=== PATIENT | male | born 1995 | race Caucasian/White ===

== ENCOUNTER 2021-03-24 15:38 | Outpatient (REF) | payer OTHER, SELFPAY ==
[2021-03-24 21:57] LABS: Influenza A PCR NEGATIVE (Negative); Influenza B PCR NEGATIVE (Negative); Resp Syncy Virus RNA Qual PCR NEGATIVE (Negative); SARS COV2 PCR INHOUSE POSITIVE (Negative)
== END 2021-03-24 15:39 | disposition home or self-care (01) ==
LOC: HO.LAB 15:38
PROVIDERS: Visit Provider Hospitalist
DX: Z20.822 Contact with and (suspected) exposure to COVID-19 (principal); R05.9 Cough, unspecified
CPT/HCPCS: 0241U